=== PATIENT | male | born 1970 | race Caucasian/White ===

== ENCOUNTER 2019-04-12 12:15 | Emergency (ER) | payer SELFPAY ==
[2019-04-12] MEDS ORDERED: METHYLPREDNISOLONE INJ 125 MG/2 ML SDV IM ONE ×2 (13:21→18:30)
--- NOTE | 2019-04-12 13:23 | ER Document Report ---
ED Medical Screen (RME) - General Chief Complaint: Rash Stated Complaint: RASH Time Seen by Provider: 04/12/19 13:19 TRAVEL OUTSIDE OF THE [place] IN LAST 30 DAYS: No - HPI Notes: 04/12/19 13:21 Patient is a 48-year-old male who presents complaining of rash of bilateral hands intermittently every month and a half. Patient states that he does have some stiffness and occasional irritation to his hands. He also has an area to his foot that is similar. His family doctor does not know what it is. Patient states that he would like some blood work done. No fever, chest pain, shortness of breath. 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 I have treated and performed a rapid initial assessment of this patient. A comprehensive ED assessment and evaluation of the patient, analysis of test res ults and completion of medical decision making process will be conducted by additional ED providers. PHYSICAL EXAMINATION: GENERAL: Well-appearing, well-nourished and in no acute distress. A&Ox4. Answers questions appropriately. Hands: He has lichenification, thickened skin, erythema, mild warmth. No purulence or streaks noted. - Related Data Allergies/Adverse Reactions: No Known Allergies Allergy (Verified 04/12/19 13:16) Physical Exam - Vital signs Vitals: Temp Pulse Resp BP Pulse Ox 97.9 F 79 19 140/82 H 95 04/12/19 13:11 04/12/19 13:11 04/12/19 13:11 04/12/19 13:11 04/12/19 13:11 Course - Vital Signs Vital signs: Temp Pulse Resp BP Pulse Ox 97.9 F 79 19 140/82 H 95 04/12/19 13:11 04/12/19 13:11 04/12/19 13:11 04/12/19 13:11 04/12/19 13:11
[2019-04-12 13:37] LABS: ABSOLUTE EOSINOPHILS # (AUTO) 0.2 10^3/uL (0.0-0.6); ABSOLUTE LYMPHOCYTES (AUTO) 2.1 10^3/uL (0.5-4.7); ABSOLUTE NEUT (AUTO) 4.9 10^3/uL (1.7-8.2); BASOPHILS % (AUTO) 0.2 % (0-2); EOSINOPHILS % (AUTO) 2.5 % (0-6); HEMATOCRIT 45.3 % (37.9-51.0); HEMOGLOBIN 15.1 g/dL (13.5-17.0); LYMPHOCYTES % (AUTO) 26.1 % (13-45); MEAN CORPUSCULAR HEMOGLOBIN 31.5 pg (27.0-33.4); MEAN CORPUSCULAR HGB CONC 33.4 g/dL (32.0-36.0); MEAN CORPUSCULAR VOLUME 95 fl (80-97); MONOCYTES % (AUTO) 12.1 % (3-13); PLATELET COUNT 257 10^3/uL (150-450); RED CELL DISTRIBUTION WIDTH 13.2 % (11.5-14.0); SEGMENTED NEUTROPHILS % (AUTO) 59.1 % (42-78); TOTAL CELLS COUNTED % (AUTO) 100 %; WHITE BLOOD COUNT 8.2 10^3/uL (4.0-10.5)
[2019-04-12 13:58] LABS: ALBUMIN 4.5 g/dL (3.5-5.0); ALKALINE PHOSPHATASE 72 U/L (38-126); ANION GAP 10 (5-19); ASPARTATE AMINO TRANSFERASE 28 U/L (17-59); BILIRUBIN,TOTAL 0.3 mg/dL (0.2-1.3); BLOOD UREA NITROGEN 12 mg/dL (7-20); CALCIUM 9.9 mg/dL (8.4-10.2); CARBON DIOXIDE 25 mmol/L (22-30); CHLORIDE 103 mmol/L (98-107); GLUCOSE 89 mg/dL (75-110); POTASSIUM 4.6 mmol/L (3.6-5.0); TOTAL PROTEIN 7.6 g/dL (6.3-8.2)
--- NOTE | 2019-04-12 17:59 | ER Document Report ---
ED General - General Chief Complaint: Rash Stated Complaint: RASH Time Seen by Provider: 04/12/19 13:19 Mode of Arrival: Ambulatory Information source: Patient TRAVEL OUTSIDE OF THE [place] IN LAST 30 DAYS: No - HPI Notes: Patient presents with a diffuse itchy scaly red rash that he states had for 2 months. He says he went to an urgent care and received some antibiotics. He states he took 1 weeks antibiotics and the rash got slightly better but will not go away. He states it is not painful it is mainly itchy. The symptoms been constant. They have been moderate. Nothing makes them better or worse. They do radiate throughout his body. The rash is on the arms legs and trunk. He is never had this rash before. No new exposures. - Related Data Allergies/Adverse Reactions: No Known Allergies Allergy (Verified 04/12/19 13:16) Past Medical History - General Information source: Patient - Social History Smoking Status: Current Every Day Smoker Frequency of alcohol use: Social Drug Abuse: Marijuana Family History: Reviewed & Not Pertinent Patient has suicidal ideation: No Patient has homicidal ideation: No Review of Systems - Review of Systems Constitutional: denies: Chills, Fever Cardiovascular: denies: Chest pain, Palpitations Respiratory: denies: Cough, Short of breath -: Yes All other systems reviewed and negative Physical Exam - Vital signs Vitals: Temp Pulse Resp BP Pulse Ox 97.9 F 79 19 140/82 H 95 04/12/19 13:11 04/12/19 13:11 04/12/19 13:11 04/12/19 13:11 04/12/19 13:11 Interpretation: Normal - General General appearance: Appears well, Alert - HEENT Head: Normocephalic, Atraumatic Eyes: Normal Pupils: PERRL - Respiratory Respiratory status: No respiratory distress Chest status: Nontender Breath sounds: Normal Chest palpation: Normal - Cardiovascular Rhythm: Regular Heart sounds: Normal auscultation Murmur: No - Abdominal Inspection: Normal Distension: No distension Bowel sounds: Normal Tenderness: Nontender Organomegaly: No organomegaly - Back Back: Normal, Nontender - Extremities General upper extremity: Normal inspection, Nontender, Normal color, Normal ROM, Normal temperature General lower extremity: Normal inspection, Nontender, Normal color, Normal ROM, Normal temperature, Normal weight bearing. No: Naldo's sign - Neurological Neuro grossly intact: Yes Cognition: Normal Orientation: AAOx4 Teresa Coma Scale Eye Opening: Spontaneous Teresa Coma Scale Verbal: Oriented [place] Coma Scale Motor: Obeys Commands Teresa Coma Scale Total: 15 Speech: Normal Motor strength normal: LUE, RUE, LLE, RLE Sensory: Normal - Psychological Associated symptoms: Normal affect, Normal mood - Skin Skin Temperature: Warm Skin Moisture: Dry Skin Color: Other - Patient has diffuse erythematous scaly rashes on the hands arms legs and trunk. The rashes on the trunk especially appear plaque-like and consistent with psoriasis. The rash on the hands could be consistent with psoriasis eczema or contact dermatitis. Course - Re-evaluation Re-evalutation: 04/12/19 17:55 I feel the differential for this patient is contact dermatitis versus eczema versus psoriasis. I think psoriasis is most likely. However if the treatment for all 3 would be steroids. I will send the patient home with oral steroids, instruct him to use Eucerin cream, and have him follow-up with dermatology. - Vital Signs Vital signs: Temp Pulse Resp BP Pulse Ox 97.9 F 79 19 140/82 H 95 04/12/19 13:11 04/12/19 13:11 04/12/19 13:11 04/12/19 13:11 04/12/19 13:11 - Laboratory Result Diagrams: 04/12/19 13:30 04/12/19 13:30 Discharge - Discharge Clinical Impression: Psoriasiform eczema Condition: Stable Disposition: HOME, SELF-CARE Instructions: Psoriasis ([facility]) Additional Instructions: Please follow-up with dermatology, , as soon as possible. Use Eucerin cream several times per day and benadryl over the counter as needed but dont drive or operate machinery with benadryl. Prescriptions: Prednisone 10 mg PO DAILY 15 Days #1 [id number] Forms: Return to Work Referrals: SHANAE SANCHEZ MD [ACTIVE STAFF] - Follow up in 1 week
[2019-04-12 18:31] VITALS: BP 146/90
== END 2019-04-12 18:28 | disposition home or self-care (01) ==
LOC: ER 12:15
DX: L30.8 Other specified dermatitis (principal); R21 Rash and other nonspecific skin eruption; F17.200 Nicotine dependence, unspecified, uncomplicated
CPT/HCPCS: 36415; 80053; 85025; 99283